=== PATIENT | male | born 1995 | race Caucasian/White ===

== ENCOUNTER → 2023-11-03 | Outpatient (CLI) | payer OTHER ==
--- NOTE | 2023-12-06 11:54 | P.CEMON ---
30 Day Event monitor note: Patient wore an event monitor for 30 days from 11/03/2023 through 12/03/2023. Findings: Patient's baseline heart rate was normal sinus rhythm. There were no signficant atrial fibrillation, atrial flutter, or ventricular tachycardia episodes. There were no significant pauses greater than 2 seconds. There were a total of 65 patient activated and automatically captured events Patient had frequent PACs which were asymptomatic Patient activated events corresponding with sinus rhythm and occasionally with sinus tachycardia Conclusions: 30 day event monitor showing normal sinus rhythm with occasional asymptomatic PACs Patient activated events corresponding with normal sinus rhythm and occasionally sinus tachycardia
--- NOTE | 2023-12-07 12:07 | EM ---
30 Day Event monitor note: Patient wore an event monitor for 30 days from 11/03/2023 through 12/03/2023. Findings: Patient's baseline heart rate was normal sinus rhythm. There were no significant atrial fibrillation, atrial flutter, or ventricular tachycardia episodes. There were no significant pauses greater than 2 seconds. There were a total of 65 patient activated and automatically captured events Patient had frequent PACs which were asymptomatic Patient activated events corresponding with sinus rhythm and occasionally with sinus tachycardia Conclusions: 30 day event monitor showing normal sinus rhythm with occasional asymptomatic PACs Patient activated events corresponding with normal sinus rhythm and occasionally sinus tachycardia [facility]
== END | disposition home or self-care (01) ==
LOC: RADECHMAIN 07:27
PROVIDERS: ATTEND Family Medicine
DX: I49.1 Atrial premature depolarization (principal); R00.0 Tachycardia, unspecified; R00.2 Palpitations
CPT/HCPCS: 93270